=== PATIENT | male | born 1985 | race Caucasian/White ===

== ENCOUNTER 2018-07-06 09:02 | Day surgery (SDC) | payer OTHER ==
[2018-06-29 12:18] VITALS: BMI 24.2
[~2018-07-06 09:02] MED LIST: DEXAMETHASONE SOD PHOSPHATE 10 MG/ML 1 ML VIAL IV ONE; HEPARIN SODIUM,PORCINE 5,000 UNIT/ML 1 ML VIAL SQ ONE; HYDROmorphone 0.5 MG/0.5 ML SYRINGE IVP PRN; LACTATED RINGERS 1,000 ML IV SCH; LIDOCAINE 1% 20 ML VIAL (10MG/ML) FOR IV START INTRADERMA PRN; MIDAZOLAM 2 MG/2 ML VIAL IV PRN; ONDANSETRON 4 MG/2 ML VIAL IVP ONE; SCOPOLAMINE 1.5MG/72HR PATCH TRANSDERM ONE; ceFAZolin IN SWFI 2 GM/20 ML SYRINGE IVP ONE; metroNIDAZOLE-NS PMX 500 MG in SALINE 1 100ML.BAG IVPB ONE
[2018-07-06 09:23] VITALS: RESP 16; TEMP 97.1
--- NOTE | 2018-07-06 09:49 | P.GSHP ---
History of Present Illness H&P Date: 07/06/18 Chief Complaint: Pilonidal cyst This is a 32-year-old male who's had chronic issues with intermittent inflammation of a pilonidal cyst. Patient presents today for excision. Patient 's aware that the wound will be packed postoperatively. Daily dressing changes. Past Medical History Additional Past Medical History / Comment(s): PILONIDAL CYST History of Any Multi-Drug Resistant Organisms: None Reported Past Surgical History: No Surgical Hx Reported Past Anesthesia/Blood Transfusion Reactions: No Reported Reaction Additional Past Anesthesia/Blood Transfusion Reaction / Comment(s): NO PRIOR SX HX Smoking Status: Former smoker - Past Family History Mother Family Medical History: No Reported History Medications and Allergies Home Medications Medication Instructions Recorded Confirmed Type Ibuprofen [Motrin] 800 mg PO Q8H PRN 06/29/18 06/29/18 History traZODone HCL 50 mg PO HS 06/29/18 06/29/18 History Allergies Allergy/AdvReac Type Severity Reaction Status Date / Time No Known Allergies Allergy Verified 07/06/18 09:19 Surgical - Exam Vital Signs Temp Pulse Resp BP Pulse Ox 97.1 F L 72 16 136/82 98 07/06/18 09:22 07/06/18 09:22 07/06/18 09:22 07/06/18 09:22 07/06/18 09:22 - General well developed, no distress - Eyes PERRL - ENT normal pinna - Neck no masses - Respiratory normal expansion - Cardiovascular Rhythm: regular - Abdomen Abdomen: soft, non tender - Integumentary Pilonidal cyst. We'll perform excision. The patient will have postoperative wet-to-dry dressing changes performed.
[2018-07-06] MEDS ORDERED: BUPIVACAIN-EPI 0.5%-1:200,000 30 ML VIAL SQ ONE (10:31)
--- NOTE | 2018-07-06 10:47 | P.OP ---
Date of Procedure: 07/06/18 Preoperative Diagnosis: Pilonidal cyst Postoperative Diagnosis: Pilonidal cyst Procedure(s) Performed: Excision of pilonidal cyst Anesthesia: MAC Surgeon: Zhou Peters Estimated Blood Loss (ml): 5 Pathology: other (Pilonidal cyst) Condition: stable Disposition: PACU Description of Procedure: The patient's placed in the operating table in the prone jackknife position. He received IV sedation. The area of the pilonidal cyst was prepped and draped usual sterile fashion. Percent local Xylocaine was used to anesthetize area. Elliptical skin incision was made around the palpable cyst. Large cautery was used for hemostasis. Using the Harmonic scissors the pylorus this was excised. The wound was packed with wet-to-dry Kerlix. Patient tolerated the procedure well and was sent to recovery in stable condition.
[2018-07-06] MEDS ORDERED: HYDROcodone/APAP 7.5-325MG 1 EACH TAB PO ONE (11:08)
[2018-07-06 11:39] VITALS: BP 123/77; PULSE 58
== END 2018-07-06 12:18 | disposition home or self-care (01) ==
LOC: OR 09:02
PROVIDERS: ATTEND Surgery
DX: L05.91 Pilonidal cyst without abscess (principal); Z79.899 Other long term (current) drug therapy; Z87.891 Personal history of nicotine dependence
CPT/HCPCS: 11770; J1644; J1100; J2405; J0690; 88304